=== PATIENT | male | born 1985 | race African-American/Black ===

== ENCOUNTER 2016-12-08 19:05 | Observation (INO) ==
[2016-12-08] MEDS ORDERED: LACTATED RINGERS 500 ML IV STA (19:12)
[2016-12-08] MEDS ORDERED: ONDANSETRON 4 MG/2 ML VIAL IV STA ×2 (19:12→23:11)
[2016-12-08] MEDS ORDERED: DIPH/TET/ACEL PERT BOOSTER VACCINE 0.5 ML VIAL IM ONE ×2 (19:12→20:21)
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
[2016-12-08] MEDS ORDERED: ceFAZolin 1,000 MG VIAL ONE (20:21)
[2016-12-08] MEDS ORDERED: ONDANSETRON 4 MG/2 ML VIAL ONE ×2 (20:21→23:11)
[2016-12-08 20:23] LABS: Basophils # 0.1 10*3/uL (0.0-0.2); Basophils % 0.5 % (0.0-0.8); Eosinophils # 0.1 10*3/uL (0.0-0.87); Eosinophils % 0.5 % (0.00-10.9); Hematocrit 44.3 VOL% (42.0-52.0); Hemoglobin 14.6 GM/DL (14.0-18.0); Immature Granulocytes % 0.7 %; Immature Granulocytes Absolute 0.09 #; Lymphocytes % 7.5 % (21.2-54.2); Mean Corpuscular Hemoglobin 28 PG (27-34); Mean Corpuscular Volume 84.4 FL (87-102); Mean Platelet Volume 9.6 FL (9.6-12.0); Monocytes # 0.8 10*3/uL (0.11-0.8); Monocytes % 5.9 % (1.7-12.7); Neutrophils # 11.3 10*3/uL (1.4-7.4); Neutrophils % 84.9 % (38.7-73.9); Platelet Count 282 T/CUMM (130-400); Red Blood Count 5.25 MC/CUMM (3.8-5.5); Red Cell Distribution Width 13.2 % (9.3-17.3); White Blood Count 13.3 T/CUMM (4-12)
[2016-12-08 20:32] LABS: Apearance,Urine CLEAR (Clear); Barbiturates Screen,Urine Negative (Negative); Benzodiazepines Screen,Urine Negative (Negative); Bilirubin,Urine Negative (Negative); Blood, Urine Moderate mg/dL (Negative); Cannabinoid Screen,Urine Negative (Negative); Glucose,Urine (UA) Negative (Negative); Ketones,Urine Negative (Negative); Mucus,Urine Occasional /LPF (Occasional); Nitrite,Urine Negative (Negative); Opiate Screen,Urine Negative (Negative); Phencyclidine Screen,Urine Negative (Negative); Protein,Urine 100 MG/DL; RBC,Urine 107 /HPF (0-4); Squamous Epithelial Cell,Urine Occasional /HPF (0-10); Urine Color Yellow (Yellow); Urine Specific Gravity 1.015 (1.001-1.035); Urine Urobilinogen < 2.0 EU/DL (0.2-1.0); WBC,Urine 1 /HPF (0-6)
[2016-12-08 20:44] LABS: Alanine Aminotransferase 76 U/L (16-61); Albumin 3.6 G/DL (3.4-5.0); Alkaline Phosphatase 69 U/L (45-117); Amylase 97 U/L (25-115); Aspartate Amino Transferase 119 U/L (0-37); Blood Urea Nitrogen 13 MG/DL (7-18); Calcium 8.5 MG/DL (8.5-10.1); Glucose 106 MG/DL (74-106); Osmolality,Calculated 278.4 MOS/KG (273-304); Potassium 3.8 MMOL/L (3.5-5.1); Sodium 140 MMOL/L (136-145); Total Protein 7.4 G/DL (6.4-8.3)
[2016-12-08 20:46] LABS: INR 1.1; PT Patient Result 12.2 SECS; Partial Thromboplastin Time 27.7 SECS (0-40)
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
[2016-12-08] MEDS ORDERED: TISSUE ADHESIVE 1 EACH APPLICATOR TOP ONE ×2 (22:09→22:18)
[2016-12-08] MEDS ORDERED: HYDROmorphone 2 MG/1 ML VIAL ONE (23:11)
[2016-12-08] MEDS ORDERED: HYDROmorphone 2 MG/1 ML VIAL IV STA (23:12)
[2016-12-08] MEDS ORDERED: ONDANSETRON 4 MG/2 ML VIAL IV PRN (23:47)
[2016-12-08] MEDS ORDERED: ALBUTEROL/IPRATROPIUM 3 ML NEB RESP TX PRN (23:47)
[2016-12-08] MEDS ORDERED: HYDROmorphone 2 MG/1 ML VIAL IV PRN (23:47)
[2016-12-08] MEDS ORDERED: ACETAMINOPHEN 325 MG TABLET PO PRN (23:47)
[2016-12-09] MEDS: methylPREDNISolone SOD SUC 40 MG/1 ML VIAL IV SCH ×2 (00:33→12:10)
[2016-12-09] MEDS: SODIUM CHLORIDE 0.45% 1,000 ML IV SCH ×2 (00:37→15:00)
[2016-12-09 04:40] LABS: Basophils % 0.3 % (0.0-0.8); Hematocrit 42.8 VOL% (42.0-52.0); Hemoglobin 13.7 GM/DL (14.0-18.0); Immature Granulocytes % 0.6 %; Immature Granulocytes Absolute 0.06 #; Lymphocytes # 0.9 10*3/uL (1.4-4.0); Mean Corpuscular Hemoglobin 27 PG (27-34); Mean Corpuscular Volume 83.9 FL (87-102); Mean Platelet Volume 9.9 FL (9.6-12.0); Monocytes # 0.3 10*3/uL (0.11-0.8); Neutrophils # 8.6 10*3/uL (1.4-7.4); Neutrophils % 87.1 % (38.7-73.9); Platelet Count 332 T/CUMM (130-400); Red Cell Distribution Width 13.3 % (9.3-17.3); White Blood Count 9.9 T/CUMM (4-12)
[2016-12-09 05:10] LABS: Albumin 3.7 G/DL (3.4-5.0); Bilirubin,Total 1.3 MG/DL (0.2-1.0); Calcium 8.8 MG/DL (8.5-10.1); Magnesium 2.1 MG/DL (1.8-2.4); Osmolality,Calculated 275.7 MOS/KG (273-304); Total Protein 8.2 G/DL (6.4-8.3)
--- NOTE | 2016-12-09 08:57 | XRay Report ---
XR abdomen 2V Indication: Generalized abdominal pain Comparison: None Technique: Frontal views of the abdomen in the supine and upright position Findings: Coarse bilateral interstitial lung markings. Nonspecific nonobstructive bowel gas pattern. No free intraperitoneal air demonstrated. Osseous structures demonstrate no acute abnormality. IMPRESSION: As above. PROCEDURE INTERPRETED AT [facility] DEPARTMENT OF RADIOLOGY Final Report Signed by: Dr Tobias Lutz
--- NOTE | 2016-12-09 08:59 | XRay Report ---
Exam: XR chest 2V Date: 12/09/2016 4:00 AM Indication: Shortness of breath Comparison: 03/04/2013 Technical: PA lateral Findings: The heart is normal in size. Some patchy interstitial density present in the right perihilar region. No obvious effusions or consolidations otherwise noted. Mediastinum and bony structures are intact. Impression: 1. Mild interstitial thickening could represent possible small infiltrate the right infrahilar perihilar region with mild thickening of the minor fissure which has developed when compared to previous study. A component of scarring would also be considered. PROCEDURE INTERPRETED AT [facility] DEPARTMENT OF RADIOLOGY Final Report Signed by: Dr. Carlos Manuel Hollis
[2016-12-09] MEDS ORDERED: PANTOPRAZOLE 40 MG VIAL IV SCH (09:00)
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
--- NOTE | 2016-12-09 11:05 | XRay Report ---
XR shoulder 2V LT Indication: Left shoulder pain Comparison: Left shoulder x-ray dated December 08, 2016 Technique: Frontal views of the left shoulder in internal and external rotation. Findings: No acute fracture or dislocation demonstrated. No radiopaque foreign body visualized. IMPRESSION: As above. PROCEDURE INTERPRETED AT [facility] DEPARTMENT OF RADIOLOGY Final Report Signed by: Dr Tobias Lutz
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
[2016-12-09 11:38] VITALS: BP 168/93
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
== END 2016-12-09 15:51 | disposition home or self-care (01) | DRG 565 ==
LOC: EDUNIT# → EDBD → N.ED 19:05 → N.EDINP 22:34 → INTOOBSV 22:34 → N.3E 23:17
PROVIDERS: ADMIT Surgery; ATTEND Surgery

== ENCOUNTER 2020-09-12 15:10 | Observation (INO) ==
[2020-09-12] MEDS ORDERED: LABETALOL 20 MG/4 ML SYRINGE IV STA (18:30)
[2020-09-12 19:27] LABS: Basophils # 0.1 10*3/uL (0.0-0.2); Basophils % 0.8 % (0.0-0.8); Eosinophils # 0.1 10*3/uL (0.0-0.87); Eosinophils % 0.8 % (0.00-10.9); Hematocrit 44.3 VOL% (42.0-52.0); Hemoglobin 14.2 GM/DL (14.0-18.0); Immature Granulocytes % 0.3 %; Immature Granulocytes Absolute 0.02 #; Lymphocytes # 1.6 10*3/uL (1.4-4.0); Lymphocytes % 25.5 % (21.2-54.2); Mean Corpuscular HGB Conc 32.1 GM/DL (32-36); Mean Platelet Volume 9.8 FL (9.6-12.0); Monocytes % 6.6 % (1.7-12.7); Platelet Count 350 T/CUMM (130-400); Red Blood Count 5.21 MC/CUMM (3.8-5.5); Red Cell Distribution Width 13.2 % (9.3-17.3); White Blood Count 6.2 T/CUMM (4-12)
[2020-09-12 19:44] LABS: Bilirubin,Urine Negative (Negative); Blood, Urine Negative (Negative); Glucose,Urine (UA) Negative (Negative); Hyaline Casts,Urine 6 /LPF (0-3); Ketones,Urine Negative (Negative); Mucus,Urine Occasional /LPF (Occasional); Nitrite,Urine Negative (Negative); Protein,Urine >=500 MG/DL; RBC,Urine 2 /HPF (0-4); Squamous Epithelial Cell,Urine Occasional /HPF (0-10); Urine Appearance CLEAR (Clear); Urine Color Yellow (Yellow); WBC,Urine 14 /HPF (0-6)
[2020-09-12] MEDS ORDERED: hydrALAZINE 20 MG/1 ML VIAL IV STA (19:46)
[2020-09-12 19:50] LABS: Albumin 3.7 G/DL (3.4-5.0); Bilirubin,Total 0.9 MG/DL (0.2-1.0); Calcium 8.9 MG/DL (8.5-10.1); Potassium 3.8 MMOL/L (3.5-5.1); Total Protein 8.6 G/DL (6.4-8.3)
[2020-09-12] MEDS ORDERED: VALSARTAN 160 MG TABLET PO ONE (20:53)
[2020-09-12] MEDS ORDERED: amLODIPine 5 MG TABLET PO STA (20:53)
[2020-09-12] MEDS ORDERED: cefTRIAXone 1,000 MG in SODIUM CHLORIDE 0.9% 100 ML IV STA (21:09)
[2020-09-12] MEDS ORDERED: DEXTROSE 50% 25 GM/50 ML VIAL IV PRN (22:54)
[2020-09-12] MEDS ORDERED: GLUCAGON 1 MG VIAL IM PRN (22:54)
[2020-09-12] MEDS ORDERED: ONDANSETRON 4 MG/2 ML VIAL IV PRN (22:54)
[2020-09-12] MEDS ORDERED: ACETAMINOPHEN 325 MG TABLET PO PRN (22:54)
[2020-09-12] MEDS ORDERED: carvediloL 3.125 MG TABLET PO STA (23:37)
[2020-09-13] MEDS ORDERED: DEXTROSE 50% 25 GM/50 ML VIAL IV PRN (00:44)
[2020-09-13] MEDS: hydrALAZINE 20 MG/1 ML VIAL IV PRN ×2 (03:45→06:35)
[2020-09-13] MEDS ORDERED: carvediloL 6.25 MG TABLET PO SCH ×2 (08:00→17:00)
[2020-09-13] MEDS: INSULIN REGULAR 100 UNIT/ML SUBCUT SCH ×2 (08:11→11:38)
[2020-09-13] MEDS ORDERED: OLMESARTAN 20 MG TABLET PO SCH (09:00)
[2020-09-13] MEDS ORDERED: ENOXAPARIN 40 MG/0.4 ML SYRINGE SUBCUT SCH (09:00)
[2020-09-13] MEDS ORDERED: amLODIPine 10 MG TABLET PO SCH (09:00)
[2020-09-13 12:00] VITALS: BP 140/83
== END 2020-09-13 14:53 | disposition home or self-care (01) ==
LOC: N.ED 15:10 → N.EDINP 15:10 → N.TELEN 09-13 03:22
PROVIDERS: ADMIT Family Medicine; ATTEND Family Medicine